=== PATIENT | male | born 1985 | race Hispanic/Latino ===

== ENCOUNTER 2020-09-25 14:59 | Outpatient (CLI) | payer OTHER ==
--- NOTE | 2020-09-25 17:47 | RAD ---
TWO VIEW CHEST: 09/25/20 HISTORY: Sleep apnea. Lung walter are clear. Heart and [id number] unremarkable. Osseous structures unremarkable. IMPRESSION: No acute findings. POS: AGW
== END 2020-09-25 15:00 | disposition home or self-care (01) ==
LOC: BICRAD 14:59
PROVIDERS: ATTEND Internal Medicine
DX: G47.30 Sleep apnea, unspecified (principal)
CPT/HCPCS: 71046

== ENCOUNTER 2022-10-30 03:10 | Emergency (ER) | payer SELFPAY | END 2022-10-30 03:43 | LOC: ERS 03:10 | DX: Z02.89 Encounter for other administrative examinations (principal); I10 Essential (primary) hypertension; F17.210 Nicotine dependence, cigarettes, uncomplicated | CPT/HCPCS: 99282 ==